=== PATIENT | male | born 1995 | race Caucasian/White ===

== ENCOUNTER 2019-11-08 11:26 | Inpatient (IN) | payer OTHER ==
[~2019-11-08] VITALS: Ht 167.6 cm; Wt 61.2 kg
[2019-11-08 12:20] VITALS: BP 120/83
[2019-11-08 13:12] LABS: BASO # 0.1 10*3/uL (0.0-0.1); BASO % 0.7 % (0.0-1.0); EOS # 0.2 10*3/uL (0.0-0.4); EOS % 3.2 % (1.0-4.0); HEMATOCRIT 46.1 % (42.0-52.0); LYMPH # 1.7 10*3/uL (1.3-4.4); LYMPH % 23.7 % (27.0-41.0); MEAN CORPUSCULAR HGB 30.9 pg (27.0-31.0); MEAN CORPUSCULAR HGB CONC 35.6 g/dl (33.0-37.0); MEAN PLATELET VOLUME 9.4 fl (9.6-12.3); MONO # 0.5 10*3/uL (0.1-1.0); MONO % 6.8 % (3.0-9.0); NEUT # 4.6 10*3/uL (2.3-7.9); NEUT % 65.3 % (47.0-73.0); PLATELET COUNT AUTOMATED 249 10*3/uL (130-400); RED CELL DISTRI WIDTH 12.6 % (0-14.5); WHITE BLOOD COUNT 7.1 10*3/uL (4.8-10.8)
--- NOTE | 2019-11-08 13:18 | NUR ---
PT HAS BEEN PROVIDED WITH A URINAL AND ENCOURAGED TO PROVIDE URINE SPECIMEN BUT HAS SO FAR NOT TRIED.
[2019-11-08 13:29] LABS: ALBUMIN 3.9 gm/dl (3.1-4.5); ALKALINE PHOSPHATASE 60 U/L (45-117); BUN 14 mg/dl (7-24); CHLORIDE 105 mmol/L (98-107); CREATININE 0.83 mg/dL (0.70-1.30); POTASSIUM 3.9 mmol/L (3.5-5.1); SGOT/AST 23 IU/L (3-35); SGPT/ALT 26 U/L (12-78); SODIUM 136 mmol/L (136-145); TOTAL PROTEIN 6.6 gm/dL (6.4-8.2)
[2019-11-08 13:35] LABS: ACETAMINOPHEN (TYLENOL) < 5.0 ug/ml (10-30)
[2019-11-08 13:36] LABS: ETHYL ALCOHOL < 3.0 mg/dl (<3)
[2019-11-08 15:35] LABS: BILIRUBIN NEGATIVE (NEGATIVE); BLOOD NEGATIVE (NEGATIVE); CLARITY SL CLOUDY (CLEAR); COLOR YELLOW (YELLOW); GLUCOSE NEGATIVE (NEGATIVE); KETONE NEGATIVE (NEGATIVE); LEUKO ESTERASE NEGATIVE (NEGATIVE); NITRITE NEGATIVE (NEGATIVE); SPECIFIC GRAVITY 1.015 (1.005-1.030)
[2019-11-08 15:42] LABS: URINE AMPHETAMINES > 1000 (1000ng/ml); URINE BARBITURATES < 200 (200ng/ml); URINE BENZODIAZEPINES < 200 (200ng/ml); URINE CANNABINOIDS (THC) > 50 (50ng/ml); URINE COCAINE < 300 (300ng/ml); URINE METHADONE < 300 (300ng/ml); URINE OPIATES < 300 (300ng/ml)
[2019-11-08 15:43] LABS: BACTERIA TRACE; RBC 0-2 rbc/hpf (0-2)
[2019-11-08 15:44] LABS: URINE PHENCYCLIDINE < 25 (25ng/ml)
--- NOTE | 2019-11-08 15:45 | NUR ---
Time: 1544 A 24 year old MALE admitted to 5E under services of ROXIE GAMBLE DO. Pt. arrived via stretcher from ER. Chief complaint: OPIATE WITHDRAWAL. LUCY SCOTT
[2019-11-08 16:00] VITALS: BP 118/72
--- NOTE | 2019-11-08 16:42 | NUR ---
PATIENT MEETS [facility]. PATIENT IS WANTING TO FOLLOW UP WITH AA/NA MEETINGS. [facility] STAFF WILL PROVIDE PATIENT WITH A LIST OF RESOURCES IN HIS AREA. MOHSEN NEGRO B.A. INFORMATION CODER
--- NOTE | 2019-11-08 19:20 | NUR ---
PATIENT ASSESSMENT COMPLETED AT THIS TIME WITHOUT INCIDENT. A&O X3, DENIES ANY CHEST PAIN/PRESSURE, SHORTNESS OF BREATH, OR WITHDRAWL SYMPTOMS AT THIS TIME. CALL LIGHT WITHIN REACH. PATIENT GIVEN A NICOTROL INHALER AT HIS REQUEST AND EDUCATED ON ITS USE. WILL CONTINUE TO MONITOR.
[2019-11-08 20:00] VITALS: BP 137/90; BP 137/92
[2019-11-09] VITALS: BP 120/68
--- NOTE | 2019-11-09 00:40 | NUR ---
PATIENT RESTING IN BED IN A POSITION OF COMFORT WITH EYES CLOSED, RESPIRATIONS EASY AND NON-LABORED AT THIS TIME. CALL LIGHT WITHIN REACH, WILL CONTINUE TO MONITOR.
--- NOTE | 2019-11-09 02:21 | NUR ---
24 HOUR CHART CHECK COMPLETE
--- NOTE | 2019-11-09 04:50 | NUR ---
ORDERED MEDICATIONS ADMINISTERED AT THIS TIME WITHOUT INCIDENT, PATIENT DENIES ANY PAIN, DISTRESS, OR NEEDS AT THIS TIME. CALL LIGHT WITHIN REACH, WILL CONTINUE TO MONITOR.
--- NOTE | 2019-11-09 07:51 | NUR ---
PT REQUESTED AND GIVEN MOTRIN FOR C/O GEN PAIN WILL MONITOR
[2019-11-09 08:00] VITALS: BP 119/65
--- NOTE | 2019-11-09 08:30 | NUR ---
CATHIE HELPED PER PT WILL MONITOR
[2019-11-09 12:00] VITALS: BP 130/63
--- NOTE | 2019-11-09 12:40 | NUR ---
[facility] STAFF IN TO SEE PATIENT. PATIENT'S DISCHARGE REMAINS THE SAME. PATIENT IS WANTING TO FOLLOW UP WITH AA/NA MEETINGS. MOHSEN NEGRO B.A. RADIO JOURNALIST
[2019-11-09 16:00] VITALS: BP 122/56
--- NOTE | 2019-11-09 19:45 | NUR ---
PATIENT REQUESTING TO SPEAK WITH NURSE AT THIS TIME TO "ASK A COUPLE OF QUESTIONS". UPON ENTERING THE ROOM THE PATIENT STATED THAT HE WAS LEAVING IN THE AM ON FRIDAY AND WANTED TO KNOW HOW HE COULD GET THE INFORMATION THAT THE [facility] COUNSELOR HAD TOLD HIM ABOUT FOR AA/NA AND HE WAS REQUESTING THAT HIS IV BE REMOVED HE "DIDN'T LIKE THEM AND IT ISN'T BEING USED". EXPLAINED TO PATIENT THAT HE WAS ABLE TO LEAVE AMA AT ANY TIME BUT THAT HE SHOULD STAY THE WHOLE TREATMENT TIME FOR HIS WELLBEING AND SUCCESSFUL RECOVERY. HE STATED THAT HE "JUST NEEDED TO GET AWAY FROM THAT PLACE FOR A COUPLE OF DAYS TO GET SOBER AND STRAIGHTENED OUT AND I CAN CONTINUE TO RECOVER ON MY OWN BY GETTING INTO ONE OF THE PROGRAMS THE TOLD ME ABOUT EARLIER I JUST NEED THE LIST", ADVISED PATIENT THAT THE [facility] COUNSELOR WOULD BE IN IN THE MORNING AND HE COULD TALK WITH THEM FOR FURTHER ASSISTANCE IN THE MEANTIME HE IS OKAY TO STAY TONIGHT AND WILL SPEAK WITH [facility] IN THE AM. IV REMOVED WITHOUT INCIDENT AT PATIENT REQUEST, NO BLEEDING OR HEMATOMA NOTED AT THE SITE, DRESSING APPLIED. CALL LIGHT WITHIN REACH WILL CONTINUE TO MONITOR.
[2019-11-09 20:00] VITALS: BP 125/68
--- NOTE | 2019-11-09 22:37 | NUR ---
24 HOUR CHART CHECK COMPLETE
[2019-11-10] VITALS: BP 127/63
--- NOTE | 2019-11-10 03:05 | NUR ---
PATIENT RESTING IN BED IN A POSITION OF COMFORT AT THIS TIME WATCHING TV, RESPIRATIONS EASY AND NON-LABORED, DENIES ANY PAIN OR NEEDS AT THIS TIME. CALL LIGHT WITHIN REACH, WILL CONTINUE TO MONITOR.
--- NOTE | 2019-11-10 07:31 | NUR ---
24 HR CHART CHECK COMPLETE.
[2019-11-10 08:00] VITALS: BP 129/69
--- NOTE | 2019-11-10 08:39 | NUR ---
PT IN BED ASLEEP AT THIS TIME. NO S/S OF DISTRESS NOTED. PT DENIES ANY WITHDRAWAL SYMPTOMS. SCHEDULED LIBRIUM ADMINISTERED. BED IS LOW, CALL LIGHT WITHIN REACH. WILL CONTINUE TO MONITOR.
[2019-11-10 12:00] VITALS: BP 140/91
--- NOTE | 2019-11-10 12:24 | NUR ---
DR PATTON INFORMED THAT PT HAS SIGNED OUT AMA
--- NOTE | 2019-11-10 12:25 | NUR ---
Patient signed out AMA. Patient encouraged to stay and advised of possible consequences of premature discharge. Physician DR. PATTON and service center supervisor LIN WONG notified. Patient instructed what to do regarding care post-departure from the hospital; emergency phone numbers provided. MADELINE ADKINS
== END 2019-11-10 13:38 | disposition left against medical advice (07) | DRG 894 ==
LOC: ED 11:26 → EDHOLD 13:07 → 5E 13:07
PROVIDERS: Nurse Practitioner Family; ADMIT Family Medicine
DX: F15.23 Other stimulant dependence with withdrawal (principal); F17.210 Nicotine dependence, cigarettes, uncomplicated; E80.6 Other disorders of bilirubin metabolism; M54.5 Low back pain; R00.1 Bradycardia, unspecified; R73.9 Hyperglycemia, unspecified; Z71.6 Tobacco abuse counseling